=== PATIENT | male | born 1940 | race Caucasian/White ===

== ENCOUNTER → 2023-12-29 14:47 | Outpatient (REF) | payer MEDICARE, OTHER, SELFPAY | LOC: RAD 14:47 | PROVIDERS: ATTENDING PHYSICIAN Surgery Vascular Surgery; FAMILY PHYSICIAN Family Medicine | DX: I71.40 Abdominal aortic aneurysm, without rupture, unspecified (principal) | CPT/HCPCS: 74176 ==

== ENCOUNTER → 2024-01-26 13:16 | Outpatient (REF) | payer MEDICARE, OTHER, SELFPAY | LOC: RAD 13:16 | PROVIDERS: ATTENDING PHYSICIAN Radiology Radiation Oncology; FAMILY PHYSICIAN Family Medicine; REFERRING PHYSICIAN Internal Medicine Hematology & Oncology | DX: C34.32 Malignant neoplasm of lower lobe, left bronchus or lung (principal) | CPT/HCPCS: 71260; Q9967 ==

== ENCOUNTER → 2024-04-18 16:14 | Outpatient (REF) | payer MEDICARE, OTHER, SELFPAY ==
[2024-04-18 11:26] LABS: % Eosinophils 2.4 % (0-6); % Immature Granulocytes 0.2 % (0-0.5); % Lymphocytes 10.8 % (20.5-51.1); % Monocytes 13.2 % (1.7-9.3); % Neutrophils 72.4 % (42.2-75.2); Absolute Basophils 0.1 10^3/uL (0-0.2); Absolute Eosinophils 0.1 10^3/uL (0-0.7); Absolute Lymphocytes 0.5 10^3/uL (1.2-3.4); Absolute Monocytes 0.7 10^3/uL (0.1-0.6); Absolute Neutrophils 3.6 10^3/uL (1.4-6.5); Hematocrit 36.4 % (39.0-52.0); Mean Corpuscular Hgb 31.7 pg (27.0-31.0); Mean Corpuscular Volume 96.3 fL (80.0-94.0); Mean Platelet Volume 8.9 fL (7.4-10.4); Platelet Count 159 10^3/uL (130-400); Red Blood Cell Count 3.78 10^6/uL (4.70-6.10); Red Cell Dist. Width 14.3 % (11.5-14.5)
[2024-04-18 12:22] LABS: ALT (SGPT) 12 U/L (0-50); AST (SGOT) 22 U/L (17-59); Albumin 4.2 g/dl (3.5-5.0); Alkaline Phosphatase 78 U/L (38-126); Blood Urea Nitrogen 34 mg/dl (9-20); Calcium 9.4 mg/dl (8.4-10.2); Carbon Dioxide 28 mmol/L (22-30); Chloride 104 mmol/L (98-107); Glucose 97 mg/dl (70-99); Potassium 4.2 mmol/L (3.5-5.1); Sodium 139 mmol/L (135-145); Total Bilirubin 0.5 mg/dl (0.2-1.3); Total Protein 6.8 g/dl (6.3-8.2); eGFR 50.18
[2024-04-18 12:51] LABS: TSH Reflex To Free T4 1.26 uIU/ml (0.47-4.68)
== END ==
LOC: OIDL 16:14
PROVIDERS: ATTENDING PHYSICIAN Internal Medicine Hematology & Oncology
DX: C34.32 Malignant neoplasm of lower lobe, left bronchus or lung (principal); R53.82 Chronic fatigue, unspecified
CPT/HCPCS: 80053; 84443; 85025

== ENCOUNTER → 2024-05-27 10:18 | Outpatient (REF) | payer MEDICARE, OTHER, SELFPAY | LOC: RAD 10:18 | PROVIDERS: ATTENDING PHYSICIAN Internal Medicine Hematology & Oncology; FAMILY PHYSICIAN Family Medicine | DX: C34.32 Malignant neoplasm of lower lobe, left bronchus or lung (principal) | CPT/HCPCS: 71260; Q9967 ==

== ENCOUNTER 2024-06-05 10:20 | Outpatient (RCR) | payer MEDICARE, OTHER, SELFPAY | END 2024-06-05 23:59 | disposition home or self-care (01) | LOC: RST 10:20 | PROVIDERS: ATTENDING PHYSICIAN Family Medicine | DX: R41.841 Cognitive communication deficit (principal); R41.3 Other amnesia; R41.89 Other symptoms and signs involving cognitive functions and awareness | CPT/HCPCS: 96125 ==

== ENCOUNTER 2024-07-28 00:27 | Emergency (ER) | payer MEDICARE, OTHER, SELFPAY ==
[2024-07-28 00:28] VITALS: BP 139/68
[2024-07-28 00:29] VITALS: BP 139/68
[2024-07-28 00:34] VITALS: BMI 21.8
[2024-07-28 01:00] VITALS: BP 111/64
--- NOTE | 2024-07-28 01:46 | ED.GENMED ---
History of Present Illness
<NORA Brewer - Last Filed: 07/28/24 02:03>
General
Chief Complaint: Fall
Source: patient and spouse
Exam Limitations: none
Time Seen by Provider: 07/28/24 01:31
History of Present Illness
History of Present Illness:
Pt is an 84 y/o M with pmhx of lung cancer, AAA with repair and stent revision, HTN, HLD, pancreatitis who presents s/p mechanical fall x3 hours. The pt reported that he was watching a movie with his on his bed and stood up after laying down
for 2 hours and felt dizzy. He fell forward and struck the left side of his face on a piece of furniture. There is an abrasion on the left forehead, a 2 cm laceration on the left side nose, a 1 cm laceration under his left eye, and a scleral
laceration on the inferior temporal quadrant of the left eye. The pt's reported that he just started Gemcitabine for his lung cancer with Dr. Del Rosario and just had his first session of chemotherapy today. Denies lightheadedness or dizziness now,
headache, chest pain, SOB, nausea, vomiting, vision changes, paresthesias, fatigue, weakness, and neck pain. The pt reports that his last tetanus shot was 2-3 years ago.
Past History
<NORA Brewer - Last Filed: 07/28/24 02:03>
Past History
ED Past Medical History: Cancer (Lung cancer), HTN, Hypercholesterolemia and Other (AAA)
ED Past Surgical History: Other (AAA repair and stent revision)
Social History
Tobacco: Former smoker
Alcohol: Daily
Personal:
Review of Systems
<NORA Brewer - Last Filed: 07/28/24 02:03>
Review of Systems
Allergies reviewed?: Yes
Constitutional: Reports no symptoms
EENT: Reports no symptoms
Respiratory: Reports no symptoms
Cardiac: Reports no symptoms
ABD/GI: Reports no symptoms
: Reports no symptoms
Musculoskeletal: Reports no symptoms
Skin: Reports other (abrasion left forehead, laceration left side of nose, laceration under left eye, left conjunctival hemorrhage)
Neurological: Reports dizzy
Endocrine: Reports no symptoms
Hematologic/Lymphatic: Reports bleeding
Psychiatric: Reports no symptoms
Phy Exam
<NORA Brewer - Last Filed: 07/28/24 02:03>
General Physical Exam
General Presentation: well appearing and no apparent distress
General age: appears stated age
General Skin: warm and dry
General Habitus: normal
General Mental: alert
General Hydration: poor skin turgor
ENT Exam
ENT Exam: EOMI and neck supple
Eye Exam
Eye Exam: PERRL, EOMI and cornea clear
Eye Exam General: PERRL: bilateral and EOM intact: bilateral
Pupil Exam: Bilateral: round
Scleral Findings: laceration: Left
Cardiovascular Exam
Cardiovascular Exam: regular rate/rhythm and normal peripheral pulses
Pulmonary Exam
Pulmonary Exam: no respiratory distress
Gastrointestinal Exam
Gastrointestinal Exam: non tender, soft and non distended
Neurological Exam
Neurological Exam: alert, oriented x3, CN II-XII intact, no motor deficits, normal reflexs, no sensory deficits and speech normal
Musculoskeletal Exam
Musculoskeletal Exam: full ROM
Skin Exam
Skin Exam: normal color, warm/dry, laceration (2 cm left side of nose, 1 cm under left eye) and other (Abrasion left forehead)
Psychiatric Exam
Psychiatric Exam: normal mood/affect
Course
<NORA Brewer - Last Filed: 07/28/24 02:03>
Orders/Labs/Results
Orders:
Orders
07/28/24 00:40
CT Facial Bones W/o Iv Contras Urgent
Comment:
Reason For Exam: fall
07/28/24 00:41
CT Head W/o Iv Contrast Urgent
Comment:
Reason For Exam: fall
Vital Signs
Initial and Last Documented VS:
Initial Vital Signs
Temp Pulse Resp BP Pulse Ox
98.2 F 63 19 139/68 97
07/28/24 00:28 07/28/24 00:28 07/28/24 00:07/28/24 00:28 07/28/24 00:28
Last Documented Vital Signs
Temp Pulse Resp BP Pulse Ox
98.2 F 61 17 111/64 95
07/28/24 00:07/28/24 01:00 07/28/24 01:00 07/28/24 01:00 07/28/24 00:34
<Daren Sorensen DO - Last Filed: 07/28/24 03:05>
Orders/Labs/Results
Orders:
Orders
07/28/24 00:40
CT Facial Bones W/o Iv Contras Urgent
Comment:
Reason For Exam: fall
07/28/24 00:41
CT Head W/o Iv Contrast Urgent
Comment:
Reason For Exam: fall
Vital Signs
Initial and Last Documented VS:
Initial Vital Signs
Temp Pulse Resp BP Pulse Ox
98.2 F 63 19 139/68 97
07/28/24 00:28 07/28/24 00:28 07/28/24 00:28 07/28/24 00:28 07/28/24 00:28
Last Documented Vital Signs
Temp Pulse Resp BP Pulse Ox
98.2 F 61 17 111/64 95
07/28/24 00:28 07/28/24 01:00 07/28/24 01:00 07/28/24 01:00 07/28/24 00:34
Procedures
<Daren Sorensen DO - Last Filed: 07/28/24 03:05>
Laceration Closure
Nose:
Status of Wound: clean
Size of Wound in cm: 1.5
Description of Wound Edges: sharp
Skin Closure Material: 5-0 nylon
Number of sutures: 4
<NORA Brewer - Last Filed: 07/28/24 02:03>
MDM/Problems Addressed
Differential Diagnosis Includes:
Facial Laceration and abrasion
Orthostatic hypotension
<NORA Brewer - Last Filed: 07/28/24 02:03>
*Critical Care Note
Total Time (30-74mins, 75-104mins- exclusive of procedures): Not Applicable
<Daren Sorensen DO - Last Filed: 07/28/24 03:05>
Update Note
Update Note:
CT HEAD NONCONTRAST
CT FACE NONCONTRAST
IMPRESSION:
HEAD:
Left frontal scalp soft tissue swelling.
No acute intracranial finding.
No evidence of intracranial hemorrhage, mass effect, midline shift, or extra-axial fluid collection.
Cerebral volume loss. There are periventricular and deep white matter hypodensities which are nonspecific but likely related to chronic microvascular ischemic disease. Atherosclerotic vascular disease.
FACE:
No acute fracture or malalignment.
Visualized cervical spine demonstrates grade 1 retrolisthesis of C3 on C4 degenerative.
ED Attending Note
<NORA Brewer - Last Filed: 07/28/24 02:03>
-
Portions of this chart may have been created with voice recognition software.� Occasional wrong word or��sound alike� substitutions may have occurred due to the inherent limitations of voice recognition software.
<Daren Sorensen DO - Last Filed: 07/28/24 03:05>
ED Attending Note
Patient seen and examined by attending physician: Yes
I performed the substantive portion of visit, reviewed & personally made and approve the management plan that is documented in note by myself or DEBRA.: Yes
ED Attending Note:
This a pleasant 84-year-old male presents to the emergency department with mechanical fall that occurred 3 hours prior to arrival. He is here because he had some bleeding on his face. He was watching a movie and stood up after lying down. He was
dizzy and struck his head on his nightstand. Patient reports no other complaints at this time. Tetanus shot is up-to-date. Patient was seen in conjunction with the PA student. I have reviewed and agree with the history and treatment plan
presented. On my independent physical exam, patient is awake, alert, and oriented x3, minimal acute distress. CT scan results reviewed. He does have a skin tear to his left forehead. He has a superficial laceration under his left eye which we
applied Dermabond to. He does have a laceration at the bridge of his nose which is approximate 1.5 cm. After being thoroughly cleaned, we injected it with 1% lidocaine without epinephrine.
Discharge Plan
Departure
Patient Disposition: Home (Routine Discharge)
Date of Disposition: 07/28/24
Time of Disposition: 02:59
Patient with high blood pressure during this ER visit?: No
Condition: Good
Discharge Problem:
Fall
Instructions: Head Injury in Adults (DC), Laceration Repair With Glue (DC), Laceration Repair With Stitches (DC), Preventing falls in adults, Skin Abrasions (DC), Wound Care (DC)
Prescriptions:
No Action
epinephrine [EpiPen 2-Sam] 0.3 MG/0.3 ML auto-injector
0.3 mg IM ONCE PRN (Reason: Allergic reaction) Qty: 1 0RF
Rx Instructions:
beef pluck trimmer
valsartan 80 mg Tablet
80 mg PO DAILY
hydrochlorothiazide 12.5 mg Capsule
12.5 mg PO DAILY
Referrals:
Anjana Agosto MD [Family Provider] -
Activity Restrictions/Additional Instructions:
Sutures can be removed in 5 to 7 days. You stated that your tetanus shot is recent. If this is found to be erroneous, please follow-up with your family doctor for an update.
It was a pleasure meeting you and taking part in your care. We hope for your continued healing and wellness.
Please read discharge instructions in their entirety. However, they are for general education and may not describe your exact diagnosis at discharge. Information on your ER visit and medical conditions were discussed with you along with appropriate
follow up information...
If indicated, please take your medications as instructed and indicated on discharge paperwork.
Please schedule a follow up appointment as directed. Call to schedule an appointment
Please return to the emergency department with ANY change in, persisting, or worsening of symptoms. If any of your symptoms do not improve, or persist, or become more severe within 6-12 hours, please return to the emergency department for further
care.
Please return to the emergency department if you develop a headache, neck pain/stiffness, fever greater than 100.4F, chest pain, shortness of breath, persistent nausea, vomiting, slurred speech, difficulty walking, numbness/tingling, weakness, signs
of infection or any other symptoms that are worrisome to you.
If you have any questions or concerns please do not hesitate to call the Hospital at or E-mail me directly at [email or web address]
Interventions
Interventions:
*Risk Screen - Suicide Last Done: 07/28/24 00:28
*General Assessment Last Done: 07/28/24 00:28
*Neglect/Abuse Screening Last Done: 07/28/24 00:28
ED- Fall Risk Assessment Last Done: 07/28/24 00:34
*ED COVID-19 Vaccine History Last Done: 07/28/24 00:34
ED-Musculoskeletal Assessment Last Done: 07/28/24 00:34
ED- Neurological Assessment Last Done: 07/28/24 00:34
ED-Skin Assessment Last Done: 07/28/24 00:34
Discharge Date and Time
Print Language: ICELANDIC
[2024-07-28 03:13] VITALS: BP 131/85
== END 2024-07-28 03:33 | disposition home or self-care (01) ==
LOC: EMR 00:27
PROVIDERS: EMERGENCY PHYSICIAN Student in an Organized Health Care Education/Training Program; FAMILY PHYSICIAN Family Medicine
DX: S01.21XA Laceration without foreign body of nose, initial encounter (principal); S00.81XA Abrasion of other part of head, initial encounter; W01.190A Fall on same level from slipping, tripping and stumbling with subsequent striking against furniture, initial encounter; I10 Essential (primary) hypertension; Z87.891 Personal history of nicotine dependence
CPT/HCPCS: 99284; 12011; 70450; 70486

== ENCOUNTER → 2024-09-12 10:00 | Outpatient (REF) | payer MEDICARE, OTHER, SELFPAY ==
[2024-09-12 12:38] LABS: Hematocrit 32.2 % (39.0-52.0); Hemoglobin 10.7 g/dL (13.0-18.0); Mean Corp Hgb Conc. 33.2 g/dL (33.0-37.0); Mean Corpuscular Hgb 34.1 pg (27.0-31.0); Mean Corpuscular Volume 102.5 fL (80.0-94.0); Mean Platelet Volume 9.8 fL (7.4-10.4); Platelet Count 181 10^3/uL (130-400); Red Blood Cell Count 3.14 10^6/uL (4.70-6.10); Red Cell Dist. Width 17.3 % (11.5-14.5); White Blood Cell Count 5.3 10^3/uL (4.8-10.8)
[2024-09-12 13:25] LABS: Absolute Neutrophils -Man Diff 3.4 10^3/uL (1.4-6.5); Atypical Lymphocytes 3 %; Band Neutrophils 0 % (0-3); Eosinophils 4 % (0-6); Lymphocytes 12 % (20-51); Monocytes 15 % (2-9); Segmented Neutrophils 66 % (42-75)
[2024-09-12 13:26] LABS: Normal RBC Morphology Yes; Platelets Checked Yes; Total Cells Counted 100
== END ==
LOC: OIDL 10:00
PROVIDERS: ATTENDING PHYSICIAN Internal Medicine Hematology & Oncology
DX: C34.32 Malignant neoplasm of lower lobe, left bronchus or lung (principal)
CPT/HCPCS: 36415; 85025

== ENCOUNTER → 2024-09-17 13:18 | Outpatient (REF) | payer MEDICARE, SELFPAY ==
[2024-09-17 13:49] LABS: % Basophils 1.3 % (0-2); % Eosinophils 3.6 % (0-6); % Immature Granulocytes 0.4 % (0-0.5); % Lymphocytes 7.8 % (20.5-51.1); % Monocytes 18.3 % (1.7-9.3); % Neutrophils 68.6 % (42.2-75.2); Absolute Basophils 0.1 10^3/uL (0-0.2); Absolute Eosinophils 0.2 10^3/uL (0-0.7); Absolute Lymphocytes 0.4 10^3/uL (1.2-3.4); Absolute Neutrophils 3.8 10^3/uL (1.4-6.5); Hematocrit 30.7 % (39.0-52.0); Hemoglobin 10.1 g/dL (13.0-18.0); Mean Corp Hgb Conc. 32.9 g/dL (33.0-37.0); Mean Corpuscular Hgb 34.1 pg (27.0-31.0); Mean Corpuscular Volume 103.7 fL (80.0-94.0); Mean Platelet Volume 8.8 fL (7.4-10.4); Platelet Count 262 10^3/uL (130-400); Red Blood Cell Count 2.96 10^6/uL (4.70-6.10); Red Cell Dist. Width 17.6 % (11.5-14.5); White Blood Cell Count 5.5 10^3/uL (4.8-10.8)
[2024-09-17 14:43] LABS: ALT (SGPT) 29 U/L (0-50); AST (SGOT) 33 U/L (17-59); Albumin 4.2 g/dl (3.5-5.0); Alkaline Phosphatase 73 U/L (38-126); Blood Urea Nitrogen 24 mg/dl (9-20); Calcium 9.1 mg/dl (8.4-10.2); Carbon Dioxide 29 mmol/L (22-30); Chloride 100 mmol/L (98-107); Glucose 85 mg/dl (70-99); Potassium 4.4 mmol/L (3.5-5.1); Sodium 139 mmol/L (135-145); Total Bilirubin 0.3 mg/dl (0.2-1.3); Total Protein 6.7 g/dl (6.3-8.2); eGFR > 60.00
== END ==
LOC: OIDL 13:18
PROVIDERS: ATTENDING PHYSICIAN Internal Medicine Hematology & Oncology
DX: C34.32 Malignant neoplasm of lower lobe, left bronchus or lung (principal)
CPT/HCPCS: 36415; 80053; 85025

== ENCOUNTER 2024-10-10 19:32 | Emergency (ER) | payer MEDICARE, SELFPAY ==
[2024-10-10 19:33] VITALS: BP 150/79
[2024-10-10 19:35] VITALS: BP 150/79
[2024-10-10 19:40] VITALS: BP 139/80
[2024-10-10 19:46] LABS: % Basophils 1.5 % (0-2); % Eosinophils 2.7 % (0-6); % Immature Granulocytes 0.2 % (0-0.5); % Lymphocytes 8.6 % (20.5-51.1); % Monocytes 13.1 % (1.7-9.3); % Neutrophils 73.9 % (42.2-75.2); Absolute Basophils 0.1 10^3/uL (0-0.2); Absolute Eosinophils 0.2 10^3/uL (0-0.7); Absolute Lymphocytes 0.5 10^3/uL (1.2-3.4); Absolute Monocytes 0.8 10^3/uL (0.1-0.6); Absolute Neutrophils 4.4 10^3/uL (1.4-6.5); Hematocrit 34.4 % (39.0-52.0); Hemoglobin 11.1 g/dL (13.0-18.0); Mean Corp Hgb Conc. 32.3 g/dL (33.0-37.0); Mean Corpuscular Volume 108.5 fL (80.0-94.0); Mean Platelet Volume 9.1 fL (7.4-10.4); Nucleated Red Blood Cells % 0 % (-); Platelet Count 257 10^3/uL (130-400); Red Blood Cell Count 3.17 10^6/uL (4.70-6.10); White Blood Cell Count 5.9 10^3/uL (4.8-10.8)
[2024-10-10 20:00] VITALS: BP 134/76
[2024-10-10 20:08] LABS: Troponin I < 0.012 ng/ml
[2024-10-10] MEDS: ASPIRIN 325 MG PO (20:08)
[2024-10-10] MEDS: NITROSTAT (SUBLINGUAL) 0.4 MG SL (20:08)
[2024-10-10 20:09] LABS: Blood Urea Nitrogen 23 mg/dl (9-20); Calcium 9.1 mg/dl (8.4-10.2); Carbon Dioxide 27 mmol/L (22-30); Chloride 101 mmol/L (98-107); Glucose 104 mg/dl (70-99); Sodium 137 mmol/L (135-145); eGFR > 60.00
--- NOTE | 2024-10-10 20:15 | ED.GENMED ---
History of Present Illness
General
Chief Complaint: Jaw Pain
Source: patient and spouse
Exam Limitations: none
Time Seen by Provider: 10/10/24 19:48
Nursing documentation reviewed up to this point in time: agreed with
History of Present Illness
History of Present Illness:
Very pleasant 84-year-old male accompanied with his EMS was eating a salad getting ready some quiche little after 6 PM, developed fairly acute onset of sharp pain in his left greater than right jaw with some chest pain and shortness of breath
and sore throat no nausea vomiting or diaphoresis, has some dental work but none recently no known dental caries, does not believe he chewed into any hard substances in the salad no history of CAD patient and spouse tell me they have seen Dr. Eldridge
previously they are unsure what for the
Past History
Past History
ED Past Medical History: Cancer (Lung cancer), HTN, Hypercholesterolemia and Other (AAA); Negative CAD
ED Past Surgical History: Other (AAA repair and stent revision)
Social History
Tobacco: Former smoker
Alcohol: Daily
Drug: None
Personal:
Living: with family
Employment: Retired
Review of Systems
Review of Systems
All Other Systems: Not applicable
Constitutional: Denies fever or fatigue
EENT: Reports other (Jaw pain)
Respiratory: Reports trouble breathing
Cardiac: Reports chest pain
: Reports no symptoms
Musculoskeletal: Reports no symptoms
Skin: Reports no symptoms
Neurological: Reports no symptoms
Phy Exam
Physical Exam
Physical Exam:
Physical Exam
General: no apparent distress, not acutely ill normal voice no drooling
Neck: Posterior pharynx is clear, intraoral exam no obvious abnormality no tenderness to tap or palpation no obvious abscess no trismus
Heart: s1/s2 regular rate and rhythm, no murmur. equal radial pulses.
Lungs: no acute respiratory distress. clear bilaterally
Abdomen: Nontender
Neuro: alert and oriented. no focal neurological deficits
Skin: no rash
Psychiatric: well kept. interactive and cooperative
Extremities: no edema. No calf pain
Scores
Heart Score for Chest Pain Patients
STEMI patient?: No
History: Slightly or Non-Suspicious
ECG: Normal
Age: >/= 65 years
Risk Factors: 1 or 2 Risk Factors
Troponin: </= Normal Limit
Heart Score for Chest Pain Patients: 3
Heart Score Risk: 2.5% MACE over next 6 weeks
Course
Orders/Labs/Results
Orders:
Orders
10/10/24 19:35
Electrocardiogram (*1) Urgent
Reason for Study: Chest Pain
EKG- Treatment ONCE
10/10/24 19:36
Basic Metabolic Panel Urgent
Complete Blood Count/With Diff Urgent
Troponin I Urgent
10/10/24 20:04
Aspirin 325 mg PO NOW STA
Nitroglycerin Sublingual [Nitrostat (Sublingual)] 0.4 mg SL [id number] PRN
10/10/24 20:05
CR Chest Portable - 1 View Urgent
Comment:
Reason For Exam: cp sob
Reason Study Needs to be Portable: Patient Unstable
10/10/24 20:14
EKG- Treatment ONCE
10/10/24 21:18
Troponin I Urgent
10/10/24 21:25
Electrocardiogram (*1) Urgent
Reason for Study: Shortness of Breath
10/10/24 22:14
Ketorolac [Toradol] 30 mg IV NOW STA
10/10/24 22:51
Amoxicillin [Amoxil] 500 mg PO NOW STA
10/10/24 22:52
Acetaminophen [Tylenol] 650 mg PO NOW STA
Abnormal Lab Results
10/10/24
19:36
RBC 3.17 L 10^6/uL
(4.70-6.10)
Hgb 11.1 L g/dL
(13.0-18.0)
Hct 34.4 L %
(39.0-52.0)
MCV 108.5 H fL
(80.0-94.0)
MCH 35.0 H pg
(27.0-31.0)
MCHC 32.3 L g/dL
(33.0-37.0)
RDW 16.0 H %
(11.5-14.5)
Absolute Lymphs (auto) 0.5 L 10^3/uL
(1.2-3.4)
Absolute Monos (auto) 0.8 H 10^3/uL
(0.1-0.6)
Lymphocytes % 8.6 L %
(20.5-51.1)
Monocytes % 13.1 H %
(1.7-9.3)
BUN 23 H mg/dl
(9-20)
Glucose 104 H mg/dl
(70-99)
10/10/24 19:36
10/10/24 19:36
Vital Signs
Initial and Last Documented VS:
Initial Vital Signs
Temp Pulse Resp BP Pulse Ox
97.8 F 59 16 150/79 98
10/10/24 19:33 10/10/24 19:33 10/10/24 19:33 10/10/24 19:33 10/10/24 19:33
Last Documented Vital Signs
Temp Pulse Resp BP Pulse Ox
97.8 F 57 17 146/66 100
10/10/24 19:33 10/10/24 22:00 10/10/24 22:00 10/10/24 21:00 10/10/24 22:00
MDM/Problems Addressed
Differential Diagnosis Includes:
Dental caries, dental trauma ACS other
MDM/Problems Addressed:
Jaw pain, shortness of breath chest pain
Chronic conditions affecting care: HTN
Acute Exacerbation and/or Progression of Chronic Illness: HTN
*Critical Care Note
Total Time (30-74mins, 75-104mins- exclusive of procedures): Not Applicable
Update Note
Update Note:
Update patient conceivably could have angina, other concern would be pain related to eating a dental pain EKG noted troponin noted will repeat, prior record completion reviewed did have a lung mass underwent a biopsy details are not entirely clear
did see vascular for AAA was repaired no abdominal complaints now
10:55 PM patient appears comfortable no further chest pain or shortness of breath, troponin x 2 was undetectable
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
Will treat empirically with antibiotics, have him follow-up with cardiology or PCP ER if worsening symptoms
ED Attending Note
-
Portions of this chart may have been created with voice recognition software.� Occasional wrong word or��sound alike� substitutions may have occurred due to the inherent limitations of voice recognition software.
Discharge Plan
Departure
Patient Disposition: Home (Routine Discharge)
Date of Disposition: 10/10/24
Time of Disposition: 23:00
Patient with high blood pressure during this ER visit?: No
Condition: Good
Discharge Problem:
Jaw pain
Instructions: Dental pain - ED discharge instructions, Chest Pain DCA Follow Up
Prescriptions:
New
amoxicillin 500 mg capsule
500 mg PO Q8H Qty: 21 0RF
ibuprofen 400 mg tablet
400 mg PO Q8H PRN (Reason: Pain) Qty: 20 0RF
No Action
epinephrine [EpiPen 2-Sam] 0.3 MG/0.3 ML auto-injector
0.3 mg IM ONCE PRN (Reason: Allergic reaction) Qty: 1 0RF
Rx Instructions:
bird keeper
valsartan 80 mg Tablet
80 mg PO DAILY
hydrochlorothiazide 12.5 mg Capsule
12.5 mg PO DAILY
Referrals:
Allen Dong MD [Active] - Next open appointment
Anjana Agosto MD [Family Provider] - Next open appointment
Interventions
Interventions:
*Risk Screen - Suicide Last Done: 10/10/24 19:33
*General Assessment Last Done: 10/10/24 19:33
*Neglect/Abuse Screening Last Done: 10/10/24 19:33
ED- Fall Risk Assessment Last Done: 10/10/24 23:20
*ED COVID-19 Vaccine History Last Done: 10/10/24 19:33
*Nursing Disposition Last Done: 10/10/24 23:20
ED-EENT Assessment Last Done: 10/10/24 23:20
ED- Cardiac Assessment Last Done: 10/10/24 23:20
Discharge Date and Time
Discharge Date/Time: 10/10/24 23:20
Print Language: KAZAKH
[2024-10-10 21:00] VITALS: BP 146/66
[2024-10-10 21:52] LABS: Troponin I < 0.012 ng/ml
[2024-10-10] MEDS: TORADOL 30 MG IV (22:17)
[2024-10-10] MEDS: AMOXIL 500 MG PO (23:17)
== END 2024-10-10 23:20 | disposition home or self-care (01) ==
LOC: EMR 19:32
PROVIDERS: EMERGENCY PHYSICIAN Emergency Medicine; FAMILY PHYSICIAN Family Medicine
DX: R68.84 Jaw pain (principal); R07.9 Chest pain, unspecified; R06.02 Shortness of breath; I10 Essential (primary) hypertension; E78.00 Pure hypercholesterolemia, unspecified; Z85.118 Personal history of other malignant neoplasm of bronchus and lung; Z87.891 Personal history of nicotine dependence
CPT/HCPCS: 99285; 96374; 71045; 80048; 84484; 85025; 93005